=== PATIENT | female | born 1950 | race Hispanic/Latino ===

== ENCOUNTER → 2018-10-03 | Day surgery (SDC) | payer MEDICARE ==
[2018-09-22 14:53] LABS: BASOPHILS # (AUTO) 0.1 (0.0-0.1); BASOPHILS % 0.8 % (0.0-1.0); EOSINOPHILS # (AUTO) 0.2 (0.0-0.4); EOSINOPHILS % 2.2 % (0.0-6.0); HEMATOCRIT 44.8 % (34.2-44.1); LYMPHOCYTES # (AUTO) 2.6 (1.0-3.2); LYMPHOCYTES % 36.8 % (18.0-39.1); MEAN CORPUSCULAR HEMOGLOBIN 34.5 pg (28-32); MEAN CORPUSCULAR HGB CONC 35.7 g/dL (31-35); MEAN CORPUSCULAR VOLUME 96.6 fL (81-99); MONOCYTES # (AUTO) 0.7 (0.2-0.8); NEUTROPHILS # (AUTO) 3.6 (2.1-6.9); NEUTROPHILS % 49.6 % (38.7-80.0); PLATELET COUNT 219 x10e3/uL (140-360); RED BLOOD COUNT 4.64 x10e6/uL (3.6-5.1); RED CELL DISTRIBUTION WIDTH 11.8 % (11.7-14.4)
[2018-09-22 15:17] LABS: ANION GAP 16.2 mmol/L (8-16); BLOOD UREA NITROGEN 12 mg/dL (7-26); BUN/CREATININE RATIO 15 (6-25); CALCIUM 10.8 mg/dL (8.4-10.2); CARBON DIOXIDE 27 mmol/L (22-29); CHLORIDE 102 mmol/L (98-107); CREATININE, SERUM 0.78 mg/dL (0.57-1.11); EST GLOMERULAR FILTRATION RATE > 60 ML/MIN (60-); GLUCOSE 71 mg/dL (74-118); SODIUM 140 mmol/L (136-145)
[2018-09-22 15:18] LABS: POTASSIUM 5.2 mmol/L (3.5-5.1)
--- NOTE | 2018-09-22 15:24 | Diagnostic Imaging Report ---
EXAMINATION: PA and lateral views of the chest. COMPARISON: None CLINICAL HISTORY: Preadmission, hysterectomy DISCUSSION: Lines/tubes: None. Lungs: The lungs are well inflated and clear. No pneumonia or pulmonary edema. Pleura: No pleural effusion or pneumothorax. Heart and mediastinum: The cardiomediastinal silhouette is normal. Bones and soft tissues: No acute bony abnormalities. IMPRESSION: No acute cardiopulmonary abnormalities. Signed by: Dr. Claudy Kiran M.D. on 09/22/2018 3:21 PM
[~2018-10-03] MED LIST: BUPIVACAINE 0.25%/EPI 30ML SDV INJ ONE; CEFAZOLIN SOD 1 GM VIAL ONE; DEXAMETHASONE SOD PHOS INJ 4 MG/ML VIAL ONE; EPHEDRINE SULFATE INJ 50 MG/10 ML SYR ONE; FENTANYL CITRATE/PF 100MCG/2 ML INJ ONE; FERRIC SUBSULFATE 20-22% SOLUTION 8ML MC ONE; GLYCOPYRROLATE INJ 1MG/ 5 ML SYR ONE; HYDROCODONE/APAP 5MG-325MG TAB ONE; IBUPROFEN 800MG/ 250ML 250 ML IV ONE; IODINE/POTASSIUM IODIDE 8 ML SOLUTION TP ONE; LIDOCAINE HCL 2% LOCAL INJ 5 ML SDV VIAL INJ ONE; LISINOPRIL10 MG PO; METFORMIN HCL500 MG PO; METOCLOPRAMIDE HCL 10 MG/2ML VIAL ONE; MIDAZOLAM HCL 2 MG/2 ML VIAL ONE; NEOSTIGMINE 5 MG/5ML SYR ONE; ONDANSETRON HCL INJ 2MG/ML 2ML 2 MG/ML VIAL ONE; PROMETHAZINE HCL (IM) 25 MG/ML VIAL ONE; PROPOFOL IV EMULSION 10 MG/ML 20 ML VIAL ONE; SEVOFLURANE INHAL SOLN 250 ML PEN BTL ONE; SIMVASTATIN20 MG PO
--- OUTSIDE RECORDS SUMMARY | 2018-10-03 06:10 | XMS REPORT ---
Author [facility] Address Unknown Phone Unavailable Care Team Providers Care Single Ending Machine Operator Name Role Phone PEMA Shani ROCK Unavailable Unavailable Problems This patient has no known problems. Allergies, Adverse Reactions, Alerts This patient has no known allergies or adverse reactions. Medications This patient has no known medications. Results Test Description Test Time Test Comments Text Results Atomic Results Result Comments CHEST 2 VIEWS 2018-09-22 15:20:00 [place] [address] Patient Name: CINDI FLETCHER MR #: [id number] : 1950 Age/Sex: 68/F Req #: [id number] Adm Physician: Ordered by: PRANAV MCADAMS MD Report #: [id number] Location: OR Room/Bed: Procedure: [id number] DX/CHEST 2 VIEWS Exam Date: 09/22/18 Exam Time: 1449 REPORT STATUS: Signed EXAMINATION: PA and lateral views of the chest. EDGAR RISON: None CLINICAL HISTORY: Preadmission, hysterectomy DISCUSSION: Lines/tubes: None. Lungs: The lungs are well inflated and clear. No pneumonia or pulmonary edema. Pleura: No pleural effusion or pneumothorax. Heart and mediastinum: The cardiomediastinal silhouette is normal. Bones and soft tissues: No acute bony abnormalities. IMPRESSION: No acute cardiopulmonary abnormalities. Signed by: Dr. Jigna Davalos M.D. on 09/22/2018 3:21 PM Dictated By: JIGNA DAVALOS MD 1521 Transcribed By: LUIS on 09/22/18 1521 COPY TO: PRANAV MCADAMS MD
[2018-10-03 11:00] VITALS: BP 114/67
--- NOTE | 2018-10-11 17:05 | Operative Report ---
DATE OF PROCEDURE: 10/03/2018 SURGEON: Kiera Srivastava MD SUPERVISOR LOOPING: None. PREOPERATIVE DIAGNOSES: Ovarian cyst and cervical dysplasia. POSTOPERATIVE DIAGNOSES: Ovarian cyst and cervical dysplasia. PROCEDURES PERFORMED: Laparoscopic bilateral salpingo-oophorectomy and loop electrode excision procedure of cervix. ANESTHESIA: General. ESTIMATED BLOOD LOSS: Minimal. COMPLICATIONS: None. FINDINGS: Included a large right ovarian cyst and normal appearance of the adnexa on the left. Normal small anteverted uterus. SPECIMENS: Included bilateral adnexa and cone biopsy of cervix. INDICATIONS: The patient is a 68-year-old postmenopausal female with a painful large right ovarian cyst as well as moderate cervical dysplasia. PROCEDURE NOTE: Prior to the procedure, the risks, benefits, indications, and alternatives were discussed and the patient agreed to proceed. Following anesthesia, the patient was placed in modified dorsal lith[facility] and prepped and draped in typical sterile fashion. A time-out was done. Uterine manipulator was placed and then attention was turned to the abdomen. Infraumbilical port site was identified and injected with solution of 0.25% Marcaine with epinephrine, and a small vertical infraumbilical incision was made with a scalpel. A 5 mm trocar was placed at the umbilicus under direct visualization with a 5 mm laparoscope. Survey of the abdomen and pelvis was done with findings noted above. Two additional ports were then placed in the patient's left lower quadrant after injection with Marcaine. A 5 mm port was placed approximately 4 cm anterior and superior to the ASIS and an 11 mm port approximately 5 fingerbreadths above this. Both were inserted atraumatically under direct visualization with the laparoscope. The left tube and ovary were then held with a blunt retractor on gentle tension and serially excised using LigaSure device to sequentially coagulate and cut at the isthmus of the fallopian tube, utero-ovarian ligament, and the infundibulopelvic ligament. The surgical sites were noted to be hemostatic. This technique was then repeated on the contralateral side with good hemostasis noted. Endobag was then introduced via the 11 mm port site and both adnexa were placed within and removed. The specimens were sent to pathologist. The 11 mm port was then removed under direct visualization and Billy-Kimani device was placed in the site and used to close the peritoneum and fascia in a mass closure technique with #0 Vicryl suture. The pelvis was then irrigated. The remaining 5 mm ports were removed under direct visualization and the abdomen was desufflated. All skin incisions were closed with 3-0 Monocryl in a subcuticular fashion. All three port sites were closed with Dermabond. Attention was then turned to the LEEP procedure where a speculum was placed inside the vagina. The uterine manipulator was removed. The cervix was painted with Lugol solution and the transformation zone of the cervix was then excised. The base of the defect was cauterized with the Bovie cautery until hemostasis was achieved. Monsel's solution was applied. The instruments were then removed from the vagina. All sponge, lap, needle, and instrument counts were correct x2. The patient tolerated the procedure well and was moved to the recovery room in stable condition. MD MAXIME Gutierrez/RIGOBERTO /[id number]
== END | disposition home or self-care (01) ==
LOC: OR 06:08
PROVIDERS: ATTEND Obstetrics & Gynecology Obstetrics
DX: D27.1 Benign neoplasm of left ovary (principal); D27.0 Benign neoplasm of right ovary; N83.8 Other noninflammatory disorders of ovary, fallopian tube and broad ligament; N87.9 Dysplasia of cervix uteri, unspecified; I25.10 Atherosclerotic heart disease of native coronary artery without angina pectoris; I10 Essential (primary) hypertension; E78.5 Hyperlipidemia, unspecified; E11.9 Type 2 diabetes mellitus without complications; K57.90 Diverticulosis of intestine, part unspecified, without perforation or abscess without bleeding; K76.0 Fatty (change of) liver, not elsewhere classified; Z72.0 Tobacco use; Z01.810 Encounter for preprocedural cardiovascular examination; Z01.812 Encounter for preprocedural laboratory examination; Z01.818 Encounter for other preprocedural examination; Z79.84 Long term (current) use of oral hypoglycemic drugs
CPT/HCPCS: 36415 ×2; 57522; 58661; 71046; 80048; 82948; 84132; 85025; 88307; 88342; 93005; J0690; J1100; J2001; J2250; J2405; J2550; J2704; J2765; J3490; 88304